=== PATIENT | female | born 1985 | race Caucasian/White ===

== ENCOUNTER → 2018-08-25 | Outpatient (REF) | payer OTHER | LOC: M SFHCWAGY 15:57 | PROVIDERS: ATTEND Nurse Practitioner Women's Health | DX: Z12.4 Encounter for screening for malignant neoplasm of cervix (principal) ==

== ENCOUNTER → 2022-02-19 | Outpatient (CLI) | payer OTHER | LOC: M RAD 16:52 | PROVIDERS: ATTEND Family Medicine | DX: G43.009 Migraine without aura, not intractable, without status migrainosus (principal) ==